=== PATIENT | female | born 1995 | race African-American/Black ===

== ENCOUNTER 2016-09-12 10:41 | Emergency (ER) | payer OTHER ==
[~2016-09-12] VITALS: Ht 170.2 cm; Wt 75.0 kg
[~2016-09-12 10:41] MED LIST: CEPH500C3 PO; FLAG250T PO; TERC45CR PV; Z.0.NO CURRENT MEDS
[2016-09-12 10:44] VITALS: BP 125/75; PULSE 104; RESP 16; TEMP 98.2; O2SAT 99
[2016-09-12] MEDS ORDERED: BACT800T5 PO (11:09)
--- NOTE | 2016-09-12 11:09 | PD ---
HPI Chief Complaint: Laceration/Skin Injury Time Seen by Provider: 11:05 Travel History International Travel<30 days: No Contact w/Intl Traveler<30days: No Traveled to known affect area: No History of Present Illness HPI 21-year-old female presents to the emergency room for evaluation of an abscess to her left medial thigh that started about 4 days ago. She has been applying warm compresses without relief in symptoms. States it has progressively gotten larger every day. Denies fever, chills, nausea, and vomiting. Chronic medical conditions or daily medications. PFSH Past Medical History Hx Anticoagulant Therapy: No Cardiovascular Problems: No Chemotherapy: No Cerebrovascular Accident: No Diabetes: No Respiratory: No ?: Not LMP: 07/2016 Past Surgical History Hysterectomy: No Other Surgery: Yes (nasal polyps removed) Social History Alcohol Use: No Tobacco Use: No Substance Use: No Allergies-Medications (Allergen,Severity, Reaction): Coded Allergies: No Known Allergies (Unverified , 09/12/16) Reported Meds & Prescriptions Reported Meds & Active Scripts Active Bactrim DS (Sulfamethoxazole-Trimethoprim) 800-160 Mg Tab 1 Tab PO BID Review of Systems Except as stated in HPI: all other systems reviewed are Neg Physical Exam Narrative GENERAL: Well-nourished, well-developed female in no acute distress. Afebrile. Ambulatory. SKIN: Warm and dry. There is an indurated area in the left medial thigh which measures about 3 cm in diameter. It is fluctuant but there is no pointing or drainage. There is a zone of inflammation around it but no lymphangitis. HEAD: Normocephalic. EYES: No scleral icterus. No injection or drainage. NECK: Supple, trachea midline. No JVD or lymphadenopathy. Data Data Last Documented VS Vital Signs Date Time Temp Pulse Resp B/P Pulse Ox O2 Delivery O2 Flow Rate FiO2 09/12/16 10:44 98.2 104 16 125/75 99 Room Air Orders Lidocai-Epi 1%-1:100,000 Inj (Xylocaine- (09/12/16 11:15) Wound Culture And Gram Stain (09/12/16 11:03) MDM Medical Decision Making Medical Screen Exam Complete: Yes Emergency Medical Condition: Yes Medical Record Reviewed: Yes Differential Diagnosis Abscess versus folliculitis versus cellulitis Narrative Course 21-year-old female presents to the emergency room for evaluation of an abscess to her left medial thigh the past 4 days. Afebrile well-appearing. No systemic signs of infection. There is a 3 second period of induration with surrounding formation but without lymphangitis. Abscess was drained, see procedure note for details. Patient discharged with wound care instructions and prescription for Bactrim. Told to follow up with primary care physician or return for worsening symptoms. She understands and agrees to plan. Procedures Procedure Narrative INCISION AND DRAINAGE OF ABSCESS: The area was prepped and was sterilely draped. A subcutaneous wheal of 1% lidocaine with epinephrine with a total number 3 mL was used to anesthetize the area properly. A number 11 scalpel was used to make a 1 cm incision across the area of the abscess. The abscess was drained, complex loculations were broken down, and irrigated with normal saline. Cultures were obtained. Sterile dressing applied. Diagnosis Primary Impression: Abscess of left thigh Referrals: Primary Care Physician Patient Instructions: Abscess (ED), General Instructions Additional Instructions: Rest and drink plenty of fluids. Take Bactrim as directed, until gone. Follow up with a primary care physician. Return to emergency room for worsening symptoms, as discussed. Med/Other Pt SpecificInfo: Prescription(s) given Scripts Sulfamethoxazole-Trimethoprim (Bactrim DS)800-160 Mg Tab1 Tab PO BID #20 TAB Ref 0 Prov:Vadim Sanon MD 09/12/16 Disposition: 01 DISCHARGE HOME Condition: Stable Payal Vang Sep 12, 2016 11:09
[2016-09-12] MEDS ORDERED: LIDOCAINE 1%/EPINEPHrine 1:100,000 SOLN 20 ML VIAL INFIL ONE (11:15)
== END 2016-09-12 11:49 | disposition home or self-care (01) ==
LOC: NEPB 10:41
DX: L02.416 Cutaneous abscess of left lower limb (principal)
CPT/HCPCS: 10060; 86403; 87070